=== PATIENT | male | born 1935 | race Caucasian/White ===

== ENCOUNTER 2016-12-13 13:48 | Emergency (ER) | payer OTHER, MEDICARE ==
[~2016-12-13] VITALS: Ht 182.9 cm; Wt 99.8 kg
[~2016-12-13 13:48] MED LIST: ALBUTEROL SULFAT3 M1 NEB; AUGMENTIN 875875 MG PO; AVODART0.5 MG PO; CRESTOR20 MG PO; CRESTOR40 MG PO; ECOTRIN81 MG PO; FUROSEMIDE20 MG PO; LASIX40 MG PO; LOSARTAN POTASS25 MG PO; PREDNISONE10 MG PO; SPIRIVA 18 MCG18 MCG INH; SYMBICORT 160/41 PUF INH; TOPROL XL 25MG25 MG PO; VENTOLIN1 PUF INH; VITAB121000 PO; VITAMIN C500 M3 PO; XARELTO20 MG PO
--- NOTE | 2016-12-13 16:01 | ED ANKLE/FOOT INJURY COMPLAINT ---
History of Present Illness General Chief Complaint: Lower Extremity Problems Stated Complaint: LFT FOOT AND ANKLE SWELLING NO KNOWN INJURY Source: patient, family, old records Exam Limitations: no limitations Vital Signs & Intake/Output Vital Signs & Intake/Output Vital Signs Date Time Temp Pulse Resp B/P Pulse O2 O2 Flow FiO2 Ox Delivery Rate 12/13 1750 98.8 83 16 143/76 98 Room Air ED Intake and Output 12/14 0000 12/13 1200 Intake Total 0 Output Total Balance 0 Intake, Oral 0 Patient 220 lb Weight Allergies Coded Allergies: NO KNOWN ALLERGIES (02/08/15) Reconcile Medications Albuterol Sulfate 3 ML NEB 3 ML NEB Q4 PRN SHORTNESS OF BREATH (Reported) Albuterol Sulfate (Ventolin) 1 UNIT PUF 2 PUFF INH Q4 PRN SHORTNESS OF BREATH (Reported) Amoxicillin/Potassium Clav (Augmentin 875-125 Tablet) 875 MG-125 MG TABLET 1 TAB PO BID cellulitis Ascorbic Acid (Vitamin C) 500 MG TAB 1 TAB PO DAILY SUPPLEMENT (Reported) Aspirin (Ecotrin) 81 MG ECT 1 TAB PO DAILY HEART (Reported) Budesonide/Formoterol Fumara (Symbicort 160-4.5 Mcg Inhaler) 160 MCG/4.5 MCG PUF 2 PUF INH BID COPD (Reported) Colchicine 0.6 MG TABLET 1 TAB PO BID PRN gout Cyanocobalamin (Vitamin B-12) 1,000 MCG TABLET 1 TAB PO DAILY SUPPLEMENT ( Reported) Dutasteride (Avodart) 0.5 MG CAPSULE 1 CAP PO DAILY PROSTATE (Reported) Furosemide (Lasix) 40 MG TAB 1 TAB PO DAILY CHF Losartan Potassium 25 MG TABLET 1 TAB PO DAILY HEART (Reported) Metoprolol Succ XL (Toprol XL 25MG) 50 MG TAB.ER.24H 1 TAB PO DAILY HEART ( Reported) Oxycodone HCl/Acetaminophen (Percocet 5-325 MG Tablet) 5 MG-325 MG TABLET 1 TAB PO Q6H PRN PAIN Rivaroxaban (Xarelto) 20 MG TABLET 1 TAB PO DAILY BLOOD THINNER (Reported) with food Rosuvastatin Calcium (Crestor) 40 MG TAB 1 TAB PO DAILY CHOLESTEROL (Reported ) Tiotropium [place] (Spiriva) 18 MCG CAP.W.DEV 1 CAP INH DAILY COPD (Reported) Triage Note: PT TO ED FOR L BIG TOE PAIN, SWELLING AND REDNESS X 1 DAY. PT STATING HX OF GOUT. Triage Nurses Notes Reviewed? yes HPI: Patient is an 81-year-old male presents complaining of left foot pain and redness extending into the left pretibial area. Symptoms onset yesterday. Pain is moderate at rest, severe with palpation and ambulation. Patient has a history of gout, reports it has been several years since he has had any acute gouty arthritis. Patient has been taking Tylenol with no improvement. Patient denies fevers, recent trauma. (SEAN CANO) Past History Travel History Traveled to [place] past 21 day No Medical History Any Pertinent Medical History? see below for history Neurological: NONE EENT: NONE Cardiovascular: AFIB, aortic stenosis, CAD, diastolic CHF Respiratory: COPD Gastrointestinal: NONE Hepatic: NONE Renal: NONE Musculoskeletal: NONE Psychiatric: NONE Endocrine: GOUT Blood Disorders: NONE Cancer(s): NONE PRODUCTION SUPPLY EQUIPMENT TENDER/Reproductive: NONE Other Medical Hx: BPH History of MRSA: No History of VRE: No History of CDIFF: No Tetanus Vaccine: 09/19/14 Surgical History Surgical History: non-contributory Psychosocial History Who do you live with Spouse Services at Home None What is your primary language German Tobacco Use: Never used ETOH Use: occasional use Illicit Drug Use: denies illicit drug use Family History Family History, If Any: BROTHER Bicuspid aortic valve FATHER Bicuspid aortic valve FH: lung cancer Hx Contributory? No (SEAN CANO) Review of Systems Review of Systems Constitutional: Denies: chills, fever. EENTM: Reports: no symptoms. Respiratory: Denies: cough, short of breath. Cardiovascular: Denies: chest pain. GI: Denies: abdominal pain, vomiting. Genitourinary: Reports: no symptoms. Musculoskeletal: Reports: see HPI. Skin: Reports: see HPI. Neurological/Psychological: Denies: numbness, paresthesia. Hematologic/Endocrine: Denies: bruising, bleeding. Immunologic/Allergic: Denies: splenectomy. (SEAN CANO) Physical Exam Physical Exam General Appearance: well developed/nourished, alert, awake Head: atraumatic, normal appearance Eyes: Bilateral: normal appearance, PERRL, EOMI. Ears, Nose, Throat: normal pharynx, normal ENT inspection, hearing grossly normal Neck: normal inspection, supple, full range of motion Cardiovascular/Respiratory: normal peripheral pulses, no respiratory distress Back: normal inspection, normal range of motion Leg/Knee/Thigh Left: normal range of motion Leg/Knee/Thigh Right: normal range of motion Ankle Left: normal range of motion (nontender) Foot Left: ERYTHEMA AND SWELLING LEFT FIRST mtp JOINT WITH RED STREAKING TO THE DISTAL PRETIBIAL AREA. pOSITIVE TENDERNESS. fULL RANGE OF MOTION AT ANKLE. pATIENT UNABLE TO FLEX HIS LEFT GREAT TOE. Neuro/Vascular: normal motor function, normal sensation Tendon: normal tendon function (SEAN CANO) Progress Differential Diagnosis: cellulitis, septic arthritis, gout Plan of Care: Laboratory Tests 12/13/16 1640: Anion Gap 10, Estimated GFR 53 L, BUN/Creatinine Ratio 36.2 H, Glucose 102 H, Uric Acid 8.1, Calcium 9.3 Results and labs discussed with patient and his . Patient discussed with and seen by Dr. Rios: gout vs cellulitis, discharge on antibiotics and colchicine. Patient has appointment with his primary doctor on Wednesday. Appears stable for discharge with close outpatient follow up. (SEAN CANO) Departure Departure Time of Disposition: 1740 Disposition: HOME OR SELF CARE Condition: Stable Clinical Impression Primary Impression: Acute gouty arthritis Secondary Impressions: Cellulitis of foot Referrals: TABBY KUNZ MD (PCP/Family) Additional Instructions: Elevate your foot. Follow up with Dr. Kunz on Wednesday as scheduled. Return to the ER if fevers, redness spreading or worsening of symptoms. Departure Forms: Customer Survey General Discharge Information Prescriptions: Current Visit Scripts Amoxicillin/Potassium Clav (Augmentin 875-125 Tablet) 1 TAB PO BID #14 TAB Colchicine 1 TAB PO BID PRN gout #10 TAB Oxycodone HCl/Acetaminophen (Percocet 5-325 MG Tablet) 1 TAB PO Q6H PRN PAIN #10 TAB (SEAN CANO) PA/ELEVATED WORK PLATFORM OPERATOR Co-Sign Statement Statement: ED Attending supervision documentation- [] I saw and evaluated the patient. I have also reviewed all the pertinent lab results and diagnostic results. I agree with the findings and the plan of care as documented in the PA's/ELEVATED WORK PLATFORM OPERATOR's documentation. [X] I have reviewed the ED Record and agree with the PA's/ELEVATED WORK PLATFORM OPERATOR's documentation. [] Additions or exceptions (if any) to the PAs/ELEVATED WORK PLATFORM OPERATOR's note and plan are summarized below: [] (LOUIS MENON,HAI Li)
[2016-12-13 16:42] LABS: ABSOLUTE BASOPHIL COUNT 0 /CUMM (0.0-0.2); ABSOLUTE EOSINOPHIL COUNT 0.1 /CUMM (0.0-0.7); ABSOLUTE GRANULOCYTE CT 7.6 /CUMM (1.4-6.5); ABSOLUTE LYMPH COUNT 0.7 /CUMM (1.2-3.4); ABSOLUTE MONOCYTE COUNT 1.2 /CUMM (0.10-0.60); BASOPHIL % 0.1 % (0.0-2.0); EOSINOPHIL % 1.5 % (0-5); GRANULOCYTE % 78.7 % (42.2-75.2); HEMATOCRIT 42.7 % (42-52); MEAN CORPUSCULAR VOLUME 100.1 FL (80.0-94.0); MEAN PLATELET VOLUME 7.4 FL (7.4-10.4); PLATELET COUNT 194 /CUMM (130-400); RBC DISTRIBUTION WIDTH 13.7 % (11.5-14.5); RED BLOOD CELL CT 4.27 /CUMM (4.70-6.10); WHITE BLOOD CELL COUNT 9.6 /CUMM (4.8-10.8)
[2016-12-13 17:10] LABS: PT 24.3 SEC (9.4-12.5)
[2016-12-13] MEDS ORDERED: COLCHICINE0.6 M2 PO (17:42)
[2016-12-13] MEDS ORDERED: PERCOCET 5-3251 EACH PO (17:42)
[2016-12-13] MEDS ORDERED: AUGMENTIN 875-1 EACH PO (17:42)
[2016-12-13 17:50] VITALS: BP 143/76
== END 2016-12-13 17:51 ==
LOC: ERH 13:48
PROVIDERS: Physician Assistant
DX: M10.9 Gout, unspecified (principal); L03.116 Cellulitis of left lower limb
CPT/HCPCS: 96365; 96375

== ENCOUNTER 2017-09-27 01:22 | Inpatient (IN) | payer OTHER, MEDICARE ==
[~2017-09-27] VITALS: Ht 180.3 cm; Wt 100.7 kg
[~2017-09-27 01:22] MED LIST changes: +ALLOPURINOL100 M1 PO; +ATORVASTATIN CA40 M1 PO; +AUGMENTIN 875-1 EACH PO; +AVODART0.5 M1; -AVODART0.5 MG PO; +COLCHICINE0.6 M2 PO; +FINASTERIDE5 M1 PO; +PERCOCET 5-3251 EACH PO; +ULTRAM50 M1
[2017-09-27 06:29] LABS: PT 14.4 SEC (9.4-12.5)
[2017-09-27] MEDS ORDERED: COUMADIN2 M1 PO (06:48)
--- NOTE | 2017-09-27 11:13 | Admission Core Measures ---
Acute Coronary Syndrome (CM) ACS Core Measures Acute Coronary Syndrome Diagnosis No Congestive Heart Failure (NEW) CHF Core Measures Congestive Heart Failure Diagnosis No Cerebrovascular Accident (NEW) CVA Core Measures CVA/TIA Diagnosis No Venous Thromboembolism VTE Core Toribio (View Protocol) VTE Risk Factors Surgery No Mechanical VTE Prophylaxis d/t N/A MechProphylax Ordered No VTE Pharm Prophylaxis d/t NA PharmProphylax ordered Problem List As ranked by this Provider includes Assessment & Plan 1. Loose total knee arthroplasty HOME MEDS Home Med List Albuterol Sulfate (Ventolin) 1 UNIT PUF 2 PUFF INH Q4 PRN SHORTNESS OF BREATH (Reported) Allopurinol 100 MG TABLET 1 TAB PO DAILY GOUT (Reported) Atorvastatin Calcium 40 MG TABLET 1 TAB PO DAILY CHOLESTEROL (Reported) Dutasteride (Avodart) 0.5 MG CAPSULE 1 CAP PO DAILY PROSTATE (Reported) Finasteride 5 MG TABLET 1 TAB PO DAILY bph (Reported) Furosemide (Lasix) 40 MG TAB 1 TAB PO DAILY CHF Metoprolol Succ XL (Toprol XL 25MG) 50 MG TAB.ER.24H 1 TAB PO DAILY HEART ( Reported) Warfarin Sodium (Coumadin) 2 MG TABLET 1 TAB PO DAILY blood thinner (Reported )
[2017-09-27] MEDS ORDERED: PERCOCET 5-3251 EACH PO (11:14)
--- NOTE | 2017-09-27 11:17 | Patient Discharge Instructions ---
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 No ointments or lotions of any type on or near incision at any time. No exceptions. Your dressing will be changed by your nurse on the second day after your surgery. Daily dry dressing changes are recommended each day thereafter. Do not soak your wound in a bath at any time until otherwise indicated by your surgeon. You may shower, please dry wound immediately after shower with a clean towel. Special Instructions: Constipation: Pain medication can cause constipation. Dr. Núñez has recommended that you take a stool softener and a laxative such as Colace and miralax each day. You may discontinue this medication if you develop loose stool or diarrhea. If you wish to continue this medication, it is available over the counter. If you are unable to move your bowels after several days, if you are unable to pass gas and are developing bloating, nausea, or vomiting as a result, please contact your doctor. Diet Continue normal diet: Yes Recommended Diet: Heart Healthy Acute Coronary Syndrome Inclusion Criteria At DC or during hospital stay patient has or had the following: ACS DIAGNOSIS No Discharge Core Measures Meds if any: Prescribed or Continued at Discharge Meds if any: NOT Prescribed or Continued at Discharge Congestive Heart Failure Inclusion Criteria At DC or during hospital stay patient has or had the following: CHF DIAGNOSIS No Discharge Core Measures Meds if any: Prescribed or Continued at Discharge Meds if any: NOT Prescribed or Continued at Discharge Cerebrovascular accident Inclusion Criteria At DC or during hospital stay patient has or had the following: CVA/TIA Diagnosis No Discharge Core Measures Meds if any: Prescribed or Continued at Discharge Meds if any: NOT Prescribed or Continued at Discharge Venous thromboembolism Inclusion Criteria VTE Diagnosis No VTE Type NONE VTE Confirmed by (Test) NONE Discharge Core Measures - Per Current guidelines, there needs to be overlap - treatment for the first 5 days of Warfarin therapy. - If discharged on Warfarin prior to 5 days of - overlap therapy, the patient will need to be - assessed for post discharge needs including - *Post discharge parental anticoagulation - *Warfarin and/or parental anticoagulation education - *Follow up date to check INR post discharge At least 5 days overlap therapy as Inpatient No Meds if any: Prescribed or Continued at Discharge Note: Overlap Therapy is Warfarin and Anticoagulant Meds if any: NOT Prescribed or Continued at Discharge
--- NOTE | 2017-09-27 11:20 | Surgical Discharge Summary ---
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 Medical History Neurological: NONE EENT: NONE Cardiovascular: AFIB, aortic stenosis, CAD, diastolic CHF Respiratory: COPD Gastrointestinal: NONE Hepatic: NONE Renal: NONE Musculoskeletal: NONE Psychiatric: NONE Endocrine: GOUT Blood Disorders: NONE Cancer(s): NONE MULE SPINNER/Reproductive: NONE Other Medical Hx: BPH History of MRSA: No History of VRE: No History of CDIFF: No Tetanus Vaccine: 09/19/14 Surgical History Pertinent Surgical History: non-contributory Family History Relations & Conditions If Any: BROTHER Bicuspid aortic valve FATHER Bicuspid aortic valve FH: lung cancer Psychosocial History Who Do You Live With? Spouse Services at Home: None What is Your Primary Language? [place] Review of Systems: See H&P Hospital Course Course Attending Physician: Wilton MENON,[facility] Primary Care Physician: Gregorio MENON,[facility] Course: Patient was admitted to the hospital for a revision of a left total total replacement because of aseptic loosening. The procedure was tolerated well and patient was transferred to a telemetry floor for closer telemetric monitoring due to his history of atrial fibrillation. His diet was advanced and tolerated. IV fluids were continued through his post-operative period for mild acute kidney injury, that resolved to his baseline chronic kidney disease lab values. Although he required intermittent straight catheterizations a few times in the first 24 hours, he has been voiding spontaneously in the last 24 hours. The patient was evaluated and treated by physical therapy, who is recommending further treatment at short term rehab. At the time of hospital discharge, his vital signs were stable, neurovascular status was intact, and pain was controlled with the use of oral pain medications. 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 Discharge Disposition: SNF Discharge Instructions General Discharge Information Code Status: Full Code Patient's Diet: Heart healthy, advance as tolerated Patient's Activity: WBAT Follow-Up Instructions/Appts: 6 week follow up with staple removal around post-op day#14 Medications at Discharge Discharge Medications: Stop taking the following medications: Tramadol HCl (Ultram) 50 MG TABLET Continue taking these medications: Dutasteride (Avodart) 0.5 MG CAPSULE 1 Capsule ORAL DAILY Comments: Last Taken: 02/09/15 Time: 9:30 AM Metoprolol Succ XL (Toprol XL 25MG) 50 MG TAB.ER.24H 1 Tablet ORAL DAILY Comments: Last Taken: 02/09/15 Time: 9:30 AM Albuterol Sulfate (Ventolin) 1 UNIT PUF 2 PUFF Inhale through mouth Every 4 hours as needed for SHORTNESS OF BREATH Days = 30 Comments: Last Taken: NOT GIVEN IN HOSPITAL Time: Furosemide (Lasix) 40 MG TAB 1 Tablet ORAL DAILY Qty = 90 Comments: Last Taken: 02/09/15 Time: 9:30 AM Allopurinol (Allopurinol) 100 MG TABLET 1 Tablet ORAL DAILY Atorvastatin Calcium (Atorvastatin Calcium) 40 MG TABLET 1 Tablet ORAL DAILY Finasteride (Finasteride) 5 MG TABLET 1 Tablet ORAL DAILY Warfarin Sodium (Coumadin) 2 MG TABLET 1 Tablet ORAL DAILY Instructions: patient alternates dose 2-4mg Start taking the following new medications: Oxycodone HCl/Acetaminophen (Percocet 5-325 MG Tablet) 5 MG-325 MG TABLET 1-2 Tablet ORAL EVERY 4-6 HOURS as needed for PAIN Qty = 36 No Refills Copies To: Gregorio MENON,Kacy
[2017-09-27 13:00] VITALS: BP 106/60
--- NOTE | 2017-09-27 13:20 | PN- Orthopedic ---
Subjective Subjective: POSTOP CHECK feeling well, no cp/sob/n/v. hungry and thirsty. no oob yet. pain well controlled. was in rapid afib in pacu, received BB- no asymptomatic, rate in 90s Objective Vital Signs and I&Os hr 92 bp 106/60 98% on 2L nc Physical Exam: gen- NAD card- s1s2 irreg irreg pulm- ctab abd- soft nt obese ext- LLE: in karine- cdi, onQ inplace, foot cool to touch but palp DP pulse, gross sensate/motor intact. calves soft nt bl Assessment/Plan Assessment/Plan A- POD0 sp revision L TKR, stable, on tele due to pmhx afib, rapid afib in pacu tx w BB, currently stable with HR in 90s P- home meds prn pain meds pt, wbat coum per inr telemetry onq pump dsg change pod2 dc planning Core Measures Venous Thromboembolism VTE Risk Factors Surgery No Mechanical VTE Prophylaxis d/t N/A MechProphylax Ordered No VTE Pharm Prophylaxis d/t NA PharmProphylax ordered
--- NOTE | 2017-09-27 14:49 | Operative Report ---
Operative/Inv Procedure Report Surgery Date: 09/27/17 Name of Procedure: #1 revision arthroplasty left femoral component #2 complete synovectomy due to foreign body reaction Pre-Operative Diagnosis: Aseptic loosening left femoral component Synovitis Post-Operative Diagnosis: Same final pathology pending Estimated Blood Loss: less than 50ml Surgeon/Embroidery Operator: Wilton MENON,Gideon Blackmon Anesthesia: general endotracheal tube Implants: Biomet Vanguard revision femoral component size 75 80/120 femoral stem, 10 mm posterior stabilized- Drains: None Specimens: Femoral component, synovial membrane, synovial fluid Microbiology: Synovial fluid Tourniquet: 1:30 Complications: None Condition: Stable Operative Indication: Patient is an 82-year-old man who had a left total knee arthroplasty in 2004. He had developed increasing pain and recurrent swelling of the left knee. Workup revealed what appeared to be a loose femoral component. Patient had a complete workup including to rule out infection. His bone scan revealed a femoral component which appeared to be loose. Tibial component appeared to be intact. Preop labs including sedimentation rate was slightly high and therefore aspiration was done of the synovial fluid of the left knee preoperatively. This study revealed no growth. Due to ongoing symptoms that interfere with normal activities of daily living, patient wished to proceed with revision of the femoral component. He understood there may be a possibility of revision of the complete total knee arthroplasty as well as the possibility of explantation if there was any findings consistent with infection intraoperatively. He wished to proceed with surgical management. Risks, benefits and expectations were discussed which included but were not limited to persistent knee pain, need for substance surgery, infection, DVT, injury to blood vessel or nerve, anesthesia risks Operative/Procedure Note Note: Patient was brought to the operating room and transferred to the operating table. Once under appropriate anesthesia the left lower extremity was prepped and draped in standard fashion. Preoperative IV antibiotic's were given prophylactically. The leg was elevated exsanguinated and tourniquet was inflated. I used the same incision as was used previously. I did not have to use the entire incision however. The incision was taken down sharply to the underlying retinaculum. This interval was developed between the subcutaneous tissue and the retinaculum. I then made a medial parapatellar incision after aspirating approximately 20 mL of slightly cloudy synovial fluid. This was sent to the lab for a stat Gram stain. I proceeded to complete the medial parapatellar approach and it was evident the patient had diffuse synovitis. There was a foreign body reaction throughout the knee. Allen complete synovectomy would need to be performed. The synovium was discolored slightly darkened and very hypertrophic. I did a complete synovectomy in the suprapatellar pouch medially lateral gutters. Femoral component was obviously loose. This was removed to facilitate exposure after the polyethylene was also removed. The tibial component appeared to be intact. I was able to perform a synovectomy in the posterior compartment as well after the polyethylene was removed. I debrided the femoral bone surfaces there was some bone loss posteriorly and distally. The use a curet and Damico to complete the removal of the membrane below the prosthesis. I then proceeded to sized the femur. It was sized to a size 75 using [employer] system. The distal femoral cut was freshened up. It was apparent the patient would need an augment on the lateral distal femur. This measured to about 5. My after my cuts were made I was able to proceed with the guide for the chamfer cuts. This was pinned in place and then the cuts were made. This was performed after doing the reaming of the femoral canal and it was sized to a size 21. Due to the extensive nature of the patient's distal femur and the amount of bone loss I thought that 80 mm stem would be better than a shorter stem. This was a total of 120 mm from the distal aspect of the femoral component.
[2017-09-27 15:04] VITALS: BP 98/66
[2017-09-27 18:53] VITALS: BP 108/64
[2017-09-27 23:37] VITALS: BP 102/62
[2017-09-28 03:54] VITALS: BP 118/60
[2017-09-28 07:53] LABS: ABSOLUTE BASOPHIL COUNT 0 /CUMM (0.0-0.2); ABSOLUTE EOSINOPHIL COUNT 0 /CUMM (0.0-0.7); ABSOLUTE GRANULOCYTE CT 13.3 /CUMM (1.4-6.5); ABSOLUTE LYMPH COUNT 0.6 /CUMM (1.2-3.4); ABSOLUTE MONOCYTE COUNT 1.7 /CUMM (0.10-0.60); BASOPHIL % 0.3 % (0.0-2.0); EOSINOPHIL % 0 % (0-5); MEAN CORPUSCULAR HGB 33.4 PG (27.0-31.0); MEAN CORPUSCULAR HGB CONC 33.8 G/DL (33.0-37.0); MEAN CORPUSCULAR VOLUME 98.7 FL (80.0-94.0); MEAN PLATELET VOLUME 7.3 FL (7.4-10.4); PLATELET COUNT 229 /CUMM (130-400); RBC DISTRIBUTION WIDTH 13.3 % (11.5-14.5); RED BLOOD CELL CT 3.45 /CUMM (4.70-6.10); WHITE BLOOD CELL COUNT 15.6 /CUMM (4.8-10.8)
[2017-09-28 08:00] VITALS: BP 124/68
[2017-09-28 08:17] LABS: PT 14.2 SEC (9.4-12.5)
--- NOTE | 2017-09-28 08:17 | PN- Orthopedic ---
See Addendum Subjective Subjective: Pain controlled. no acute events overnight. no complaints. Objective Vital Signs and I&Os Vital Signs Date Time Temp Pulse Resp B/P B/P Pulse O2 O2 Flow FiO2 Mean Ox Delivery Rate 09/28 0354 97.9 85 20 118/60 97 Nasal 2.0L Cannula 09/28 0000 Nasal 2.0L Cannula 09/27 2337 98.2 70 20 102/62 97 Nasal 2.0L Cannula 09/27 1853 97.7 77 20 108/64 97 Nasal 2.0L Cannula 09/27 1600 Nasal 2.0L Cannula 09/27 1504 97.6 66 20 98/66 97 Nasal 2.0L Cannula 09/27 1330 98 Nasal 2.0L Cannula 09/27 1300 98.0 92 18 106/60 98 Nasal 2.0L Cannula Intake & Output 09/28 1600 09/28 0800 09/28 0000 09/27 1600 09/27 0800 09/27 0000 Intake Total 700 800 315 Output Total 300 300 Balance 400 500 315 Intake, IV 600 600 75 Intake, Oral 100 200 240 Output, Urine 300 300 Patient 222 lb Weight Weight Reported by Patient Measurement Method Physical Exam: wdwn, aox3, nad no resp distress LLE- dressing cdi, on q in place. ROM 5-80 degrees. nvi distally. Results Last 48 Hours of Labs: Laboratory Tests 09/28 09/27 0617 0614 Chemistry Sodium Pending Potassium Pending Chloride Pending Carbon Dioxide Pending Anion Gap Pending BUN Pending Creatinine Pending BUN/Creatinine Ratio Pending Coagulation PT (9.4 - 12.5 SEC) Pending 14.4 H INR (0.90 - 1.17) Pending 1.38 H Hematology CBC w Diff Pending WBC Pending RBC Pending Hgb Pending Hct Pending MCV Pending MCH Pending RDW Pending Plt Count Pending MPV Pending PUBS MCHC Pending Assessment/Plan Assessment/Plan A- POD1 sp revision L TKR, stable, on tele due to pmhx afib P- home meds prn pain meds follow am labs pt, wbat coum per inr telemetry for hx of afib onq pump dsg change pod2 dc on Q pod2 snf discharge 1-2 days Core Measures Venous Thromboembolism VTE Risk Factors Surgery No Mechanical VTE Prophylaxis d/t N/A MechProphylax Ordered No VTE Pharm Prophylaxis d/t NA PharmProphylax ordered
[2017-09-28 08:56] LABS: GRANULOCYTE % 85.1 % (42.2-75.2)
[2017-09-28 14:42] VITALS: BP 94/52
[2017-09-28 22:13] VITALS: BP 110/60
[2017-09-29 06:53] VITALS: BP 100/62
--- NOTE | 2017-09-29 07:43 | PN- Orthopedic ---
See Addendum Subjective Subjective: Reports pain improves with morphine. Tolerating diet. No nausea. IV fluids continued and celebrex held due to acute kidney injury. Although he voided 500, he was straight cath'ed for 250 mls. Out of bed with PT and rolling walker. No dizziness. No shortness of breath. No chest pains. +BM yesterday. He anticipates discharge to rehab tomorrow. Objective Vital Signs and I&Os Vital Signs Date Time Temp Pulse Resp B/P B/P Pulse O2 O2 Flow FiO2 Mean Ox Delivery Rate 09/29 0653 98.8 87 18 100/62 97 Room Air 09/28 2213 99.4 85 18 110/60 97 09/28 1629 Room Air 2.0L 09/28 1442 97.8 90 20 94/52 96 Room Air 09/28 0805 124/68 09/28 0800 90 20 124/68 97 Room Air Intake & Output 09/29 0800 09/29 0000 09/28 1600 09/28 0800 09/28 0000 09/27 1600 Intake Total 8984 488 7371 700 800 315 Output Total 750 200 300 300 Balance 330 540 880 400 500 315 Intake, IV 800 300 600 600 600 75 Intake, Oral 280 240 480 100 200 240 Number 1 Bowel Movements Output, Urine 750 200 300 300 Patient 222 lb Weight Weight Reported by Patient Measurement Method Physical Exam: General - alert & oriented x 3. comfortable. no acute distress. Lungs - clear bilaterally Cardiac - s1s2 Abdomen - soft. nontender. Extremities - warm bilaterally. right leg dressing removed. incision well approximated with artemio. no erythema or exudates. on q removed. calves soft and nontender b/l. nvi. athrombics active. Current Medications: Current Medications Sig/Mihir Start time Last Medication Dose Route Stop Time Status Admin Albuterol Sulfate 2 PUF Q4 HRS NEEDED PRN 09/27 1330 AC INH Allopurinol 100 MG DAILY 09/28 1000 AC 09/28 PO 0805 Atorvastatin Calcium 40 MG 1700 09/28 1700 AC 09/28 PO 1625 Celecoxib 400 MG DAILY 09/28 1000 DC 09/28 PO 0806 Dextrose/Lactated 1,000 ML Q10H 09/29 0800 UNVr Ringer's IV Dextrose/Lactated 1,000 ML Q10H 09/28 1430 DC 09/29 Ringer's IV 0130 Dextrose/Lactated 1,000 ML Q13H 09/27 1330 DC 09/28 Ringer's IV 0154 Docusate Sodium 100 MG BID 09/29 1000 UNVr PO Docusate Sodium 100 MG DAILY NEEDED PRN 09/27 1330 DC 09/28 PO 0806 Finasteride 5 MG DAILY 09/28 1000 AC 09/28 PO 0805 Furosemide 40 MG DAILY 09/28 1000 DC 09/28 PO 0805 Metoprolol Succinate 50 MG DAILY 09/28 1000 AC 09/28 PO 08 Morphine Sulfate 2 MG Q3P PRN 09/27 1330 AC IV Morphine Sulfate 4 MG Q3P PRN 09/27 1330 AC 09/29 IV 0429 Ondansetron HCl 4 MG Q6P PRN 09/27 1330 AC IV Oxycodone/ 1 TAB Q4P PRN 09/27 1330 AC Acetaminophen PO Oxycodone/ 2 TAB Q4P PRN 09/27 1330 AC Acetaminophen PO Polyethylene Glycol 17 GM DAILY NEEDED PRN 09/27 1330 AC PO Senna/Docusate Sodium 2 TAB AT BEDTIME NEED.. 09/27 1330 AC PO Warfarin Sodium 5 MG COUMADIN 1700 ONE 09/28 1800 DC 09/28 PO 09/28 1801 1945 Results Last 48 Hours of Labs: Laboratory Tests 09/29 09/28 0715 0617 Chemistry Sodium (137 - 145 mmol/L) Pending 140 Potassium (3.5 - 5.1 mmol/L) Pending 4.7 Chloride (98 - 107 mmol/L) Pending 102 Carbon Dioxide (22 - 30 mmol/L) Pending 25 Anion Gap (5 - 16) Pending 13 BUN (9 - 20 mg/dL) Pending 55 H Creatinine (0.7 - 1.2 mg/dL) Pending 2.3 H Estimated GFR (>60 ml/min) 27 L BUN/Creatinine Ratio (7 - 25 %) Pending 23.9 Coagulation PT (9.4 - 12.5 SEC) Pending 14.2 H INR (0.90 - 1.17) Pending 1.36 H Hematology CBC w Diff Pending NO MAN DIFF REQ WBC (4.8 - 10.8 /CUMM) Pending 15.6 H RBC (4.70 - 6.10 /CUMM) Pending 3.45 L Hgb (14.0 - 18.0 G/DL) Pending 11.5 L Hct (42 - 52 %) Pending 34.0 L MCV (80.0 - 94.0 FL) Pending 98.7 H MCH (27.0 - 31.0 PG) Pending 33.4 H RDW (11.5 - 14.5 %) Pending 13.3 Plt Count (130 - 400 /CUMM) Pending 229 MPV (7.4 - 10.4 FL) Pending 7.3 L Gran % (42.2 - 75.2 %) 85.1 H Lymphocytes % (20.5 - 51.1 %) 3.9 L Monocytes % (1.7 - 9.3 %) 10.7 H Eosinophils % (0 - 5 %) 0 Basophils % (0.0 - 2.0 %) 0.3 Absolute Granulocytes (1.4 - 6.5 /CUMM) 13.3 H Absolute Lymphocytes (1.2 - 3.4 /CUMM) 0.6 L Absolute Monocytes (0.10 - 0.60 /CUMM) 1.7 H Absolute Eosinophils (0.0 - 0.7 /CUMM) 0 Absolute Basophils (0.0 - 0.2 /CUMM) 0 PUBS MCHC (33.0 - 37.0 G/DL) Pending 33.8 Assessment/Plan Assessment/Plan This 82 year old male with hx chf, afib, hld, htn, gout, hx bph, is POD#2 s/p revision L 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 wbat f/u labs may consider walker catheter if still requiring straight caths. strict i/o's given pacheco telemetry for hx of afib d/c planning for tomorrow if stable will d/w Core Measures Venous Thromboembolism VTE Risk Factors Surgery No Mechanical VTE Prophylaxis d/t N/A MechProphylax Ordered No VTE Pharm Prophylaxis d/t NA PharmProphylax ordered
[2017-09-29 07:53] LABS: ABSOLUTE BASOPHIL COUNT 0 /CUMM (0.0-0.2); ABSOLUTE EOSINOPHIL COUNT 0.2 /CUMM (0.0-0.7); ABSOLUTE GRANULOCYTE CT 6.4 /CUMM (1.4-6.5); ABSOLUTE LYMPH COUNT 0.8 /CUMM (1.2-3.4); ABSOLUTE MONOCYTE COUNT 0.9 /CUMM (0.10-0.60); BASOPHIL % 0.1 % (0.0-2.0); EOSINOPHIL % 2.1 % (0-5); GRANULOCYTE % 77.6 % (42.2-75.2); MEAN CORPUSCULAR HGB 32.8 PG (27.0-31.0); MEAN CORPUSCULAR HGB CONC 33.6 G/DL (33.0-37.0); MEAN CORPUSCULAR VOLUME 97.5 FL (80.0-94.0); MEAN PLATELET VOLUME 6.9 FL (7.4-10.4); PLATELET COUNT 188 /CUMM (130-400); RED BLOOD CELL CT 3.08 /CUMM (4.70-6.10); WHITE BLOOD CELL COUNT 8.3 /CUMM (4.8-10.8)
--- NOTE | 2017-09-29 11:42 | RADIOLOGY REPORT ---
EXAMINATION: CR KNEE, LEFT CLINICAL INFORMATION: Status post left total knee arthroplasty. COMPARISON: None TECHNIQUE: Two views of the left knee. FINDINGS: The patient is status post total left knee arthroplasty with the prosthetic components well seated within the blackfeet bone and normally aligned. Postsurgical changes are seen in the overlying soft tissues with soft tissue emphysema, soft tissue swelling, small knee joint effusion and midline cutaneous artemio seen. No hardware failure or blackfeet bone fracture is seen. Prominent atherosclerotic vascular calcifications are seen. IMPRESSION: Expected postsurgical changes seen status post total left knee arthroplasty. No hardware failure or blackfeet bone fracture noted.
[2017-09-29 14:47] VITALS: BP 94/60
[2017-09-29 17:36] VITALS: BP 120/74
[2017-09-29 22:19] VITALS: BP 144/80
[2017-09-30 05:46] VITALS: BP 122/62
[2017-09-30 08:19] LABS: PT 21.9 SEC (9.4-12.5)
[2017-09-30] MEDS ORDERED: PERCOCET 5-3251 EACH PO (08:44)
[2017-09-30] MEDS ORDERED: SENNA PLUS TAB1 EACH PO (08:44)
[2017-09-30] MEDS ORDERED: DOCUSATE SODIU100 M3 PO (08:44)
[2017-09-30 10:12] VITALS: BP 122/62
== END 2017-09-30 15:25 | DRG 467 ==
LOC: SDA 01:22 → 1NO 01:22 → ENRESERV 11:23 → ENTRNSPT 12:19 → EDTRNSPTSTS 12:27 → EDTRNSPT 12:27 → 1NO 12:44 → CMPTRNSPT 12:47 → ENTRNSPT 09-30 15:24 → EDTRNSPTSTS 09-30 15:25 → 1NO 09-30 15:25 → EDTRNSPT 09-30 15:25 → CMPTRNSPT 09-30 15:40
PROVIDERS: Orthopaedic Surgery; Physician Assistant; Physician Assistant Surgical
PROC: 0SPU0JZ Removal of Synthetic Substitute from Left Knee Joint, Femoral Surface, Open Approach (ICD-10-PCS; principal; 2017-09-27)
PROC: 0SRU0J9 Replacement of Left Knee Joint, Femoral Surface with Synthetic Substitute, Cemented, Open Approach (ICD-10-PCS; 2017-09-27)
DX: T84.033A Mechanical loosening of internal left knee prosthetic joint, initial encounter (principal); I13.0 Hypertensive heart and chronic kidney disease with heart failure and stage 1 through stage 4 chronic kidney disease, or unspecified chronic kidney disease; J84.9 Interstitial pulmonary disease, unspecified; N17.9 Acute kidney failure, unspecified; I50.32 Chronic diastolic (congestive) heart failure; I48.91 Unspecified atrial fibrillation; N18.2 Chronic kidney disease, stage 2 (mild); I35.0 Nonrheumatic aortic (valve) stenosis; M10.9 Gout, unspecified; E78.5 Hyperlipidemia, unspecified; N40.0 Benign prostatic hyperplasia without lower urinary tract symptoms
CPT/HCPCS: 1NSP; 87070; 87075; 36415; 73560-LT; 81001; 82436; 87086; 97110-GO; 97112-GO; 97116-GO; 97161-GP; 97530-GO; C1713; C9399; J0131; J0171; J1100; J1885; J2795; J3370; J3490; J7040

== ENCOUNTER 2018-04-04 10:54 | Observation (INO) | payer OTHER, MEDICARE ==
[~2018-04-04] VITALS: Ht 180.3 cm; Wt 98.4 kg
[~2018-04-04 10:54] MED LIST changes: +COUMADIN2 M1 PO; +DOCUSATE SODIU100 M3 PO; +SENNA PLUS TAB1 EACH PO; -TOPROL XL 25MG25 MG PO; +TOPROL XL25 M1 PO
[2018-04-04 11:56] LABS: ABSOLUTE BASOPHIL COUNT 0 /CUMM (0.0-0.2); ABSOLUTE EOSINOPHIL COUNT 0.1 /CUMM (0.0-0.7); ABSOLUTE GRANULOCYTE CT 4.3 /CUMM (1.4-6.5); ABSOLUTE LYMPH COUNT 0.6 /CUMM (1.2-3.4); ABSOLUTE MONOCYTE COUNT 0.5 /CUMM (0.10-0.60); BASOPHIL % 0.5 % (0.0-2.0); EOSINOPHIL % 2.4 % (0-5); GRANULOCYTE % 77.1 % (42.2-75.2); HEMATOCRIT 35.8 % (42-52); MEAN CORPUSCULAR HGB 33.3 PG (27.0-31.0); MEAN CORPUSCULAR HGB CONC 34.7 G/DL (33.0-37.0); MEAN CORPUSCULAR VOLUME 96.1 FL (80.0-94.0); MEAN PLATELET VOLUME 6.8 FL (7.4-10.4); PLATELET COUNT 199 /CUMM (130-400); RBC DISTRIBUTION WIDTH 13.9 % (11.5-14.5); RED BLOOD CELL CT 3.72 /CUMM (4.70-6.10); WHITE BLOOD CELL COUNT 5.5 /CUMM (4.8-10.8)
[2018-04-04] MEDS ORDERED: COUMADIN4 M1 PO (11:59)
[2018-04-04] MEDS ORDERED: HYDROCHLOROTHIA25 M1 PO (11:59)
[2018-04-04] MEDS ORDERED: CRESTOR40 M2 PO (11:59)
[2018-04-04] MEDS ORDERED: ASPIRIN81 M4 PO (12:00)
[2018-04-04] MEDS ORDERED: VITAMIN C500 M6 PO (12:01)
[2018-04-04] MEDS ORDERED: VITAMIN B-12250 MCG PO (12:01)
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
[2018-04-04] MEDS ORDERED: FUROSEMIDE40 M1 PO (12:03)
[2018-04-04 12:06] LABS: PT 41.1 SEC (9.4-12.5)
--- NOTE | 2018-04-04 14:16 | CT SCAN REPORT ---
EXAMINATION: CT ANGIOGRAM NECK WITH CONTRAST CT ANGIOGRAM BRAIN WITH CONTRAST CLINICAL INFORMATION: Central vertigo. COMPARISON: None available. TECHNIQUE: First, a noncontrast head CT was performed. Test bolus sequences followed by intravenous administration 95 mL of Optiray 320. Helical imaging was performed in the axial plane from the thoracic inlet to the skull vertex. Delayed postcontrast imaging of the head was also performed. The data was processed at the nanotechnology engineering technologist workstation for generation of MIP sequences. Angled MIPs and volume rendered reformatted images were also generated at an offline 3D workstation. Stenoses are assessed in accordance with NASCET criteria unless otherwise indicated. FINDINGS: BRAIN: There is global cerebral volume loss and mild chronic microangiopathy. There is no hemorrhage, hydrocephalus, extra-axial surface collection, midline shift, or other herniation pattern. Solomon to white matter differentiation is diffusely maintained without evidence of an evolved acute territorial infarct. The basilar cisterns are preserved. No significant soft tissue abnormality. No acute osseous abnormality. The paranasal sinuses and the mastoid air cells are well-aerated. CERVICAL SOFT TISSUES AND LUNG APICES: Calcified pleural plaques are again noted. Partially imaged mediastinal and hilar lymphadenopathy. Advanced cervical spondylosis. NECK CTA: There is a classic 3 vessel configuration of the aortic arch. Proximal arch vessels are non-stenotic. The vertebral arteries are codominant. Atherosclerotic calcification of the vertebral artery origins bilaterally likely resulting in mild to moderate vertebral artery origin stenosis. Cervical vertebral arteries are otherwise widely patent. Common carotid arteries are widely patent. Calcific and lipid rich atherosclerotic plaque results in 50% stenoses of the proximal right and left internal carotid arteries. BRAIN CTA: Calcific atherosclerotic disease results in mild narrowing of the left intradural vertebral artery. The right AICA and PICA are faintly visualized with a possible combined origin that is severely stenotic or near occluded. No definite cerebellar infarcts are seen. The basilar artery is widely patent. Atherosclerotic calcification results in mild luminal narrowing of the carotid siphons bilaterally. The anterior, middle, and posterior cerebral artery complexes are widely patent. 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 IMPRESSION: - No acute intracranial findings. No acute infarcts. There is global cerebral volume loss and mild chronic microangiopathy. - The right AICA and PICA are faintly visualized with a possible combined origin that is severely stenotic or near occluded. No definite cerebellar infarcts are seen. - Calcific and lipid rich atherosclerotic plaque results in 50% stenoses of the proximal right and left internal carotid arteries. - Atherosclerotic calcification of the vertebral artery origins bilaterally likely resulting in mild to moderate vertebral artery origin stenosis. 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 - Calcified pleural plaques are again noted. Partially imaged mediastinal and hilar lymphadenopathy. - Advanced cervical spondylosis. The covering provider has been paged with these findings at 2:11 PM on 04/04/2018.
--- NOTE | 2018-04-04 16:21 | MRI REPORT ---
EXAMINATION: MR BRAIN WITHOUT CONTRAST CLINICAL INFORMATION: Ongoing vertigo. Concern for posterior CVA. COMPARISON: CTA of the head and neck earlier 04/04/2018. TECHNIQUE: MRI of the brain without contrast was obtained using routine sequences. FINDINGS: No diffusion abnormalities are identified to suggest an acute or subacute infarct. No mass effect or midline shift is seen. There is mild commensurate prominence of the ventricles and sulci consistent with mild diffuse volume loss. There are moderately extensive areas of T2 and FLAIR hyperintensity in the periventricular and subcortical white matter and in the josephine consistent with sequelae of chronic microvascular ischemic disease. There is a subinsular lacunar infarct on the left. No extra-axial fluid collections are seen. The cerebellum appears normal. The CP angles are unremarkable. There have been bilateral lens extractions. No pathologic magnetic susceptibility artifact is identified on the gradient refocused acquisition. The craniovertebral junction, marrow signal, and midline structures are normal. The major intracranial flow-voids at the level of the [place] are preserved. The dural venous sinus flow-voids are maintained. The mastoid air cells and paranasal sinuses are well-aerated. IMPRESSION: 1. There are no acute bleeds or infarcts. No masses are demonstrated. 2. There is diffuse volume loss and there are chronic microvascular ischemic disease and lacunar infarcts.
--- NOTE | 2018-04-04 17:06 | Cons- Neurology ---
General Information and HPI Consulting Request Date of Consult: 04/04/18 Requested By: Dr. Sims History of Present Illness: 82-year-old male in relatively good medical health who about 3:00 in the morning getting out of bed to go to the bathroom He noted that he was both vertiginous and imbalance He went to the bathroom and almost missed the toilet when sitting He then walked back to bed again imbalanced and holding onto the burns to avoid falling After while he laid down and stated that the dizzy sensation seemed to serina He then tried again related to get up and as he was sitting again noted a vertiginous sense Is no accompanying vomiting Did not have any difficulty with speech There was no limb incoordination There is no diplopia He recalls that about 2 weeks ago he hit his head hard on a seat rest He noted mild headache which subsequently resolved There was no change in hearing Allergies/Medications Allergies: Coded Allergies: No Known Allergies (09/21/17) Home Med List: Allopurinol 100 MG TABLET 1 TAB PO DAILY GOUT (Reported) Ascorbate Calcium (Vitamin C) 500 MG TABLET 1 TAB PO DAILY VITAMIN SUPPORT ( Reported) Aspirin (Aspirin*) 81 MG TAB.CHEW 1 TAB PO DAILY HEART HEALTH (Reported) Atorvastatin Calcium 40 MG TABLET 1 TAB PO DAILY CHOLESTEROL (Reported) Cyanocobalamin (Vitamin B-12) (Vitamin B-12) 250 MCG TABLET 1 TAB PO DAILY VITAMIN SUPPORT (Reported) Finasteride 5 MG TABLET 1 TAB PO DAILY bph (Reported) Furosemide 40 MG TABLET 1 TAB PO DAILY CHF (Reported) Hydrochlorothiazide 25 MG TABLET 1 TAB PO DAILY WATER RETENTION (Reported) Metoprolol Succ XL (Toprol XL) 25 MG TAB 1 TAB PO DAILY HEART (Reported) Rosuvastatin Calcium (Crestor) 40 MG TABLET 1 TAB PO DAILY CHOLESTEROL ( Reported) Warfarin Sodium (Coumadin) 2 MG TABLET 1 TAB PO TuThSa blood thinner ( Reported) Warfarin Sodium (Coumadin) 4 MG TABLET 1 TAB PO SuMoWeFr BLOOD THINNER ( Reported) Current Medications: Current Medications Sig/Mihir Start time Last Medication Dose Route Stop Time Status Admin Lorazepam 0 .STK-MED ONE 04/04 1327 DC .ROUTE Lorazepam 0.5 MG ONE ONE 04/04 1315 DC 04/04 IV 04/04 1316 1353 Meclizine HCl 0 .STK-MED ONE 04/04 1136 DC PO Meclizine HCl 12.5 MG ONCE ONE 04/04 1130 DC 04/04 PO 04/04 1131 1140 Sodium Chloride 500 ML BOLUS ONE 04/04 1130 DC 04/04 IV 04/04 1229 1140 Review of Systems Review of Systems: Mild headache which resolved, no diplopia, no speech or swallowing difficulty, no hearing change Weight stable, no chest pains Intermittent breathing difficulties: Patient on CPAP No focal weakness or paresthesias No significant swelling No fevers Other systems reviewed are negative Past History Travel History Traveled to [place] past 21 day No Medical History Neurological: NONE EENT: NONE Cardiovascular: AFIB, aortic stenosis, CAD, diastolic CHF Respiratory: COPD Gastrointestinal: NONE Hepatic: NONE Renal: NONE Musculoskeletal: NONE Psychiatric: NONE Endocrine: GOUT Blood Disorders: NONE Cancer(s): NONE 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 Other Medical Hx: BPH Surgical History Surgical History: non-contributory Family History Relations & Conditions If Any: BROTHER Bicuspid aortic valve FATHER Bicuspid aortic valve FH: lung cancer Psychosocial History Services at Home: None Smoking Status: Former Smoker Exam & Diagnostic Data Vital Signs and I&O Vital Signs Date Time Temp Pulse Resp B/P B/P Pulse O2 O2 Flow FiO2 Mean Ox Delivery Rate 04/04 1625 98.2 72 18 121/71 97 Room Air 04/04 1347 97.9 68 20 132/79 98 Room Air 04/04 1059 97 Room Air 04/04 1058 97.8 85 20 155/81 97 Room Air Intake & Output 04/04 1600 04/04 0800 04/04 0000 Intake Total 500 Output Total Balance 500 Intake, IV 500 Patient 214 lb Weight Weight Reported by Patient Measurement Method Physical Exam: Alert and oriented Language functions fund of knowledge attention span and concentration recall intact Heart sounds normal no carotid bruits distal pulses intact Extraocular movements full, pupils equal reactive fundi benign, visual olea intact, no facial weakness or facial sensory loss, Palate, tongue, sholders intact, hearing mildly impaired, Normal tone and strength upper and lower extremities Mild sensory loss in hands bilaterally but not lower extremities Deep tendon reflexes areflexic bilaterally coordinative functions upper extremities intact Gait showed mild imbalance Hallpike Jaiden maneuver did not induce nystagmus or vertigo Last 48 Hours of Lab Results: Laboratory Tests 04/04 1146 Chemistry Sodium (137 - 145 mmol/L) 142 Potassium (3.5 - 5.1 mmol/L) 4.4 Chloride (98 - 107 mmol/L) 103 Carbon Dioxide (22 - 30 mmol/L) 27 Anion Gap (5 - 16) 12 BUN (9 - 20 mg/dL) 50 H Creatinine (0.7 - 1.2 mg/dL) 1.5 H Estimated GFR (>60 ml/min) 45 L BUN/Creatinine Ratio (7 - 25 %) 33.3 H Glucose (65 - 99 mg/dL) 104 H Calcium (8.4 - 10.2 mg/dL) 9.0 Total Bilirubin (0.2 - 1.3 mg/dL) 0.8 AST (17 - 59 U/L) 28 ALT (21 - 72 U/L) 39 Alkaline Phosphatase (< 127 U/L) 124 Troponin I (<0.11 ng/ml) 0.08 Total Protein (6.3 - 8.2 g/dL) 6.6 Albumin (3.5 - 5.0 g/dL) 3.8 Globulin (1.9 - 4.2 gm/dL) 2.8 Albumin/Globulin Ratio (1.1 - 2.2 %) 1.4 Coagulation PT (9.4 - 12.5 SEC) 41.1 H INR (0.90 - 1.17) 3.72 H Hematology CBC w Diff NO MAN DIFF REQ WBC (4.8 - 10.8 /CUMM) 5.5 RBC (4.70 - 6.10 /CUMM) 3.72 L Hgb (14.0 - 18.0 G/DL) 12.4 L Hct (42 - 52 %) 35.8 L MCV (80.0 - 94.0 FL) 96.1 H MCH (27.0 - 31.0 PG) 33.3 H MCHC (33.0 - 37.0 G/DL) 34.7 RDW (11.5 - 14.5 %) 13.9 Plt Count (130 - 400 /CUMM) 199 MPV (7.4 - 10.4 FL) 6.8 L Gran % (42.2 - 75.2 %) 77.1 H Lymphocytes % (20.5 - 51.1 %) 10.8 L Monocytes % (1.7 - 9.3 %) 9.2 Eosinophils % (0 - 5 %) 2.4 Basophils % (0.0 - 2.0 %) 0.5 Absolute Granulocytes (1.4 - 6.5 /CUMM) 4.3 Absolute Lymphocytes (1.2 - 3.4 /CUMM) 0.6 L Absolute Monocytes (0.10 - 0.60 /CUMM) 0.5 Absolute Eosinophils (0.0 - 0.7 /CUMM) 0.1 Absolute Basophils (0.0 - 0.2 /CUMM) 0 Imaging/Other Studies: MRI brain: IMPRESSION: 1. There are no acute bleeds or infarcts. No masses are demonstrated. 2. There is diffuse volume loss and there are chronic microvascular ischemic disease and lacunar infarcts. CT/CTA: IMPRESSION: - No acute intracranial findings. No acute infarcts. There is global cerebral volume loss and mild chronic microangiopathy. - The right AICA and PICA are faintly visualized with a possible combined origin that is severely stenotic or near occluded. No definite cerebellar infarcts are seen. - Calcific and lipid rich atherosclerotic plaque results in 50% stenoses of the proximal right and left internal carotid arteries. - Atherosclerotic calcification of the vertebral artery origins bilaterally likely resulting in mild to moderate vertebral artery origin stenosis. 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 - Calcified pleural plaques are again noted. Partially imaged mediastinal and hilar lymphadenopathy. Assessment/Plan Assessment: Vertigo, positional Likely benign positional vertigo but this could not be reproduced on examination No evidence for cerebellar infarct on MRI scan Recommendations: Physical therapy for gait evaluation and reassessment for possible benign positional vertigo Monitor for possible development of cerebellar signs Consult Acknowledgment - Thank you for your consult request.
--- NOTE | 2018-04-04 18:01 | History & Physical ---
Uri Minor 04/04/18 5594: General Information and HPI MD Statement: I have seen and personally examined TRISHA ABRAHAM and documented this H&P. The patient is a 82 year old M who presented with a patient stated chief complaint of dizziness. Source of Information: patient, family Exam Limitations: clinical condition (could not assess gait) History of Present Illness: Retention, hyperlipidemia 80, CAD, diastolic heart failure, A. fib on Coumadin, aortic stenosis status post aortic valve replacement who presents to the emergency department with several hours of dizziness. According to the patient, around 3 AM this morning to go to the bathroom, but felt very "out of balance ", having to hold onto the burns to keep from falling. He returned to bed afterwards, but the dizziness persisted. The patient states he did not fall during this event. He denies chest pain and shortness of breath. Denies any headache. Has had no fever/chills/travel/change in medications. Has never had these symptoms before Allergies/Medications Allergies: Coded Allergies: No Known Allergies (09/21/17) Home Med list Allopurinol 100 MG TABLET 1 TAB PO DAILY GOUT (Reported) Ascorbate Calcium (Vitamin C) 500 MG TABLET 1 TAB PO DAILY VITAMIN SUPPORT ( Reported) Aspirin (Aspirin*) 81 MG TAB.CHEW 1 TAB PO DAILY HEART HEALTH (Reported) Atorvastatin Calcium 40 MG TABLET 1 TAB PO DAILY CHOLESTEROL (Reported) Cyanocobalamin (Vitamin B-12) (Vitamin B-12) 250 MCG TABLET 1 TAB PO DAILY VITAMIN SUPPORT (Reported) Finasteride 5 MG TABLET 1 TAB PO DAILY bph (Reported) Hydrochlorothiazide 25 MG TABLET 1 TAB PO DAILY WATER RETENTION (Reported) Metoprolol Succ XL (Toprol XL) 25 MG TAB 1 TAB PO DAILY HEART (Reported) Rosuvastatin Calcium (Crestor) 40 MG TABLET 1 TAB PO DAILY CHOLESTEROL ( Reported) Warfarin Sodium (Coumadin) 2 MG TABLET 1 TAB PO TuThSa blood thinner ( Reported) Warfarin Sodium (Coumadin) 4 MG TABLET 1 TAB PO SuMoWeFr BLOOD THINNER ( Reported) Compliance With Home Meds: GOOD Past History Travel History Traveled to [place] past 21 day No Medical History Neurological: NONE EENT: NONE Cardiovascular: AFIB, aortic stenosis, CAD, diastolic CHF Respiratory: COPD Gastrointestinal: NONE Hepatic: NONE Renal: NONE Musculoskeletal: NONE Psychiatric: NONE Endocrine: GOUT Blood Disorders: NONE Cancer(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 spouse Services at Home: None Smoking Status: Former Smoker Review of Systems Review of Systems Constitutional: Reports: no symptoms. Cardiovascular: Reports: no symptoms. Respiratory: Reports: no symptoms. Musculoskeletal: Reports: no symptoms. Skin: Reports: no symptoms. Neurological/Psychological: Reports: other (vertigo). Denies: confusion, headache, tingling, tremors. Hematologic/Endocrine: Reports: no symptoms. Exam & Diagnostic Data Last 24 Hrs of Vital Signs/I&O Vital Signs Date Time Temp Pulse Resp B/P B/P Pulse O2 O2 Flow FiO2 Mean Ox Delivery Rate 04/04 2010 80 20 150/82 98 04/04 1736 81 18 154/86 99 Room Air 04/04 1625 98.2 72 18 121/71 97 Room Air 04/04 1347 97.9 68 20 132/79 98 Room Air 04/04 1059 97 Room Air 04/04 1058 97.8 85 20 155/81 97 Room Air Intake & Output 04/04 1600 04/04 0800 04/04 0000 Intake Total 500 Output Total Balance 500 Intake, IV 500 Patient 214 lb Weight Weight Reported by Patient Measurement Method Physical Exam General Appearance Alert, Oriented X3, Cooperative, No Acute Distress Skin No Rashes, No Breakdown Skin Temp/Moisture Exam: Warm/Dry HEENT Atraumatic, PERRLA, EOMI Neck Supple, No JVD, No thryomegaly Cardiovascular Regular Rate, Normal S1, Normal S2, No Murmurs Lungs Clear to Auscultation, Normal Air Movement Abdomen Soft, No Tenderness, No Hepatospenomegaly Neurological Normal Speech, Strength at 5/5 X4 Ext, Normal Tone, Sensation Intact, dizziness, increased by increasing vertical height Extremities No Clubbing, No Cyanosis, No Edema, Normal Pulses Vascular Normal Pulses, Pulses Symmetrical Last 24 Hrs of Labs/Dustin: Laboratory Tests 04/04/18 1146: Anion Gap 12, Estimated GFR 45 L, BUN/Creatinine Ratio 33.3 H, Glucose 104 H, Calcium 9.0, Total Bilirubin 0.8, AST 28, ALT 39, Alkaline Phosphatase 124, Troponin I 0.08, Total Protein 6.6, Albumin 3.8, Globulin 2.8, Albumin/Globulin Ratio 1.4, PT 41.1 H, INR 3.72 H, CBC w Diff NO MAN DIFF REQ, RBC 3.72 L, MCV 96.1 H, MCH 33.3 H, MCHC 34.7, RDW 13.9, MPV 6.8 L, Gran % 77.1 H, Lymphocytes % 10.8 L, Monocytes % 9.2, Eosinophils % 2.4, Basophils % 0.5, Absolute Granulocytes 4.3, Absolute Lymphocytes 0.6 L, Absolute Monocytes 0.5, Absolute Eosinophils 0.1, Absolute Basophils 0 Diagnostic Data Other Results SERVICE DATE: 04/04/18 EXAM TYPE: MRI - MRI-HEAD W/O MICHELLE IMPRESSION: 1. There are no acute bleeds or infarcts. No masses are demonstrated. 2. There is diffuse volume loss and there are chronic microvascular ischemic disease and lacunar infarcts. SERVICE DATE: 04/04/18 EXAM TYPE: CAT - CT HEAD ANGIOGRAM; CT NECK ANGIOGRAM IMPRESSION: - No acute intracranial findings. No acute infarcts. There is global cerebral volume loss and mild chronic microangiopathy. - The right AICA and PICA are faintly visualized with a possible combined origin that is severely stenotic or near occluded. No definite cerebellar infarcts are seen. - Calcific and lipid rich atherosclerotic plaque results in 50% stenoses of the proximal right and left internal carotid arteries. - Atherosclerotic calcification of the vertebral artery origins bilaterally likely resulting in mild to moderate vertebral artery origin stenosis. 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 - Calcified pleural plaques are again noted. Partially imaged mediastinal and hilar lymphadenopathy. - Advanced cervical spondylosis. Assessment/Plan Assessment: This is an 82-year-old male with history of hypertension, hyperlipidemia, coronary artery disease, diastolic heart failure, A. fib on Coumadin, aortic stenosis status post aortic valve replacement who was brought to the emergency department with several hours of dizziness. Problem list/plan: Intractable vertigo -Admit to [facility] -Vitals and I/O per protocol -Appreciate neurology consult - will contact them again to discuss the clinical correlate of AICA/PICA stenosis in this patient -All home medicines held at this time; will restart them pending etiology of vertigo Chronic conditions (htn, hld, cad, hf, afib, aortic stenosis/replacement) -restart home medications pending etiology of vertigo -warfarin held for supratherapeutic INR DVT prophylaxis - held due to supratherapeutic INR Patient is DNR/DNI As Ranked By This Provider Problem List: 1. Vertigo Core Measures/Misc (06/06) Acute Coronary Syndrome ACS Diagnosis: No Congestive Heart Failure Congestive Heart Failure Diagnosis No Cerebrovascular Accident CVA/TIA Diagnosis: No VTE (View Protocol) VTE Risk Factors Age>40 No Mechanical VTE Prophylaxis d/t N/A MechProphylax Ordered No VTE Pharm Prophylaxis d/t Supratherapeutic INR Sepsis (View protocol) Sepsis Present: No If YES complete Sepsis Event Note If YES complete Sepsis Event Note Meaghan Kaufman 04/04/18 2019: Core Measures/Misc (06/06) Sepsis (View protocol) If YES complete Sepsis Event Note If YES complete Sepsis Event Note Resident Review Statement Resident Statement: examined this patient, discussed with technology internship, agreed with technology internship, discussed with family, reviewed EMR data (avail) Other Findings: 82-year-old gentleman past medical history significant for hypertension, hyperlipidemia, coronary artery disease, diastolic heart failure, A. fib on Coumadin, aortic stenosis status post aortic bovine valve replacement brought by family to ED for dizziness of one day duration. Family was at bedside during the interview. Patient states that he woke up early this morning and very unsteady and unbalanced when he was trying to walk he describes the dizziness as himself spinning. Denies any falls, loss of consciousness, nausea, vomiting, decreased p.o. intake, aggravation with head movement, headaches, vision changes , or difficulty with speech, weakness of upper and lower extremities, previous similar episodes in the past, upper respiratory symptoms, ear pain ear discharge , chest pain shortness of breath or palpitations. Vitals stable in the ED, on examination patient was alert and oriented and answers questions appropriately cranial nerves II to XII grossly normal, power 5 out of 5 4, sensations intact normal tone, no pronator drift appreciated. Patient's gait not assessed. He did report some improvement with meclizine and Ativan. Labs significant for supratherapeutic INR, BUN 50, creatinine 1.5 which looks like his baseline. MRI showed no acute bleed or infarcts CTA of the neck significant for right AICA and PICA are faintly visualized with a possible combined origin that is severely stenotic or near occluded. Assessment: Differentials include cerebellar stroke versus benign proximal positional vertigo Problem list Vertigo Atrial fibrillation Aortic valve replacement Hypertension Coronary artery disease Plan Place as obs to general medicine floor, every 4 neuro checks, vitals per protocol Unclear what the clinical significance of AICA/PICA stenosis at this time as patient is neurologically stable we will continue to monitor closely and follow- up neuroradiology in the a.m. Orthostatic vitals PT /OT Neurology consulted by ED Ativan/meclizine as needed as needed We will hold Coumadin in view of supratherapeutic INR follow-up INR in the morning Continue home medications DVT prophylaxis supratherapeutic INR DNR/DNI Shay Ortega MD 04/05/18 2222: Core Measures/Misc (06/06) Sepsis (View protocol) If YES complete Sepsis Event Note If YES complete Sepsis Event Note Attending MD Review Statement Attending Statement Attending MD Statement: examined this patient, discuss w/resident/PA/SOLAR DESIGN ENGINEER, agreed w/resident/PA/SOLAR DESIGN ENGINEER, discussed with family, reviewed EMR data (avail), reviewed images, amended to note Attending Assessment/Plan: The patient is an 82 yo male with h/o CAD, afib, preserved EF CHF, s/p bioprosthetic AOVR who presented in the ED with c/o sudden onset of severe vertigo which began at 3 am on the morning of admission. He was unable to keep his balance. He denied any palpitations, chest pain, dyspnea, headache or other focal weakness. In the ED he was seen by Neurology and neuro w/u and imaging (no acute CVA or bleed). He was on telemetry in the ED and had no arrhythmias at the time he was symptomatic per ED physician. Physical Exam: VS: T 97.9, P 80, R 20, BP 150/82, PO 98% RA HEENT: eyes- PERRLA, EOMI w/o nystagmus pratima- moist mucosa Neck: no bruits or JVD Chest: clear Cor: sl irreg, nl rate, nl S1, S2 w/o murm Abd: BS+, soft, NT Ext: no edema, pulses 2+ Neuro: alert & oriented x 3, motor, sensory, DTRs, CN intact- FTN/HTS intact ( gait not tested) Labs/Tests- as above Impression/Plan: #Severe Vertigo- MRI, CTA, CT negative for acute CVA. Neuro consult suspects BPPV, however no nystagmus. Plan: Bring in to hospital as observation patient- q4h neuro checks PT consult in morning- ? vestibular exercises #Afib- rate controlled on Metoprolol. Plan: Continue Metoprolol and Coumadin. #Hyperlipidemia- on statin. Plan: Continue statin. #H/O Gout- no symptoms. Plan: Continue Allopurinol. #S/P Bioproshetic AOVR- no c/o. Plan: Continue Coumadin.
[2018-04-05 06:08] VITALS: BP 132/66
--- NOTE | 2018-04-05 07:16 | PN-Observation ---
Uri Minor 04/05/18 0715: Observation Note Observation Note _ I have personally examined TRISHA ABRAHAM. him disposition is uncertain at this time. Before a determination can be made, he requires continued observation for the following reasons: Patient has been experiencing vertigo, determination must be made whether this is BPPV versus an acute intracranial process such as stroke Assessment/Plan Medical Assessment: This is an 82-year-old male with history of hypertension, hyperlipidemia, coronary artery disease, diastolic heart failure, A. fib on Coumadin, aortic stenosis status post aortic valve replacement who was brought to the emergency department with several hours of dizziness. Problem list/plan Intractable vertigo -Admit to [facility] -Vitals and I/O per protocol -Appreciate neurology consult and elaboration of imaging findings Chronic conditions -all home medicines continued, except warfarin for supratherapeutic INR DVT prophylaxis: held due to supratherapeutic INR Patient is DNR/DNI Problem List: 1. Vertigo DVT/Prophylaxis: mechanical Discharge Plan Discharge Disposition: home Stable for Discharge? Yes Anticipated Discharge (Day): today If Discharged Today/In 24 Hrs: CMR done Subjective Follow-up For: Vertigo/dizziness Complaints: no complaints Subjective: She was seen and examined at the bedside. Patient states that all of his vertigo has resolved since last night. No other complaints. Patient states he is ready to return home. Review of Systems Constitutional: Reports: no symptoms. Objective Last 24 Hrs of Vital Signs/I&O Vital Signs Date Time Temp Pulse Resp B/P B/P Pulse O2 O2 Flow FiO2 Mean Ox Delivery Rate 04/05 1321 97.4 81 20 132/70 92 Room Air 04/05 1320 81 132/70 04/05 0859 66 120/86 04/05 0800 Room Air 04/05 0608 98.2 73 20 132/66 98 Room Air 04/04 2346 Room Air 04/04 2010 80 20 150/82 98 Intake & Output 04/05 1600 04/05 0800 04/05 0000 Intake Total 480 240 Output Total Balance 480 240 Intake, Oral 480 240 Number 0 0 Bowel Movements Patient 217 lb 214 lb Weight Weight Bed scale Reported by Patient Measurement Method Physical Exam General Appearance: Alert, Oriented X3, Cooperative, No Acute Distress Skin: No Rashes, No Breakdown Skin Temp/Moisture Exam: Warm/Dry HEENT: Atraumatic, PERRLA, EOMI Neck: Supple, No JVD, No thryomegaly Cardiovascular: Regular Rate, Normal S1, Normal S2, No Murmurs, loud aortic snap Lungs: Clear to Auscultation, Normal Air Movement Abdomen: Soft Neurological: Normal Gait, Normal Speech, Strength at 5/5 X4 Ext, Normal Tone, Sensation Intact Extremities: No Clubbing, No Cyanosis, No Edema, Normal Pulses Vascular: Normal Pulses, Pulses Symmetrical MaggieNhi 04/05/18 1251: Attending Addendum Attending Brief Note 82 yo male with h/o CAD, AOVR, afib on warfarin presented with sudden onset of severe vertigo. Had neuro w/u in ED including CT, CTA, MRI- no acute infarct on MRI but some vascular narrowing on CTA. Was seen by Neuro (Dr. Tran) and thinks vertigo from BPPV. He has no nystagmus, PT consulted and stable for discharge to home. Anticipate discharge soon. Consider discontinuation of diuretics and follow up with PCP in 1 week of discharge.
--- NOTE | 2018-04-05 08:44 | Patient Discharge Instructions ---
Discharge Instructions General Discharge Information Special Instructions: - Please follow up with your primary care physician within 1-2 weeks of discharge. Inform your primary care physician of this admission to [facility]. -A consultation request has been made for you at [facility] with Dr. Elizondo. Please call to schedule this appointment within one month. - Continue your current medications per discharge instructions. - Please watch for these problems: Fever, Chills, Nausea, Vomiting, Shortness of Breath, Productive Cough, Chest Pain/Discomfort, Abdominal Pain, Active Bleeding or Bloody urine/stool. Diet Continue normal diet: Yes Activity Full Activity/No Limits: Yes Acute Coronary Syndrome Inclusion Criteria At DC or during hospital stay patient has or had the following: ACS DIAGNOSIS No Discharge Core Measures Meds if any: Prescribed or Continued at Discharge Meds if any: NOT Prescribed or Continued at Discharge Congestive Heart Failure Inclusion Criteria At DC or during hospital stay patient has or had the following: CHF DIAGNOSIS No Discharge Core Measures Meds if any: Prescribed or Continued at Discharge Meds if any: NOT Prescribed or Continued at Discharge Cerebrovascular accident Inclusion Criteria At DC or during hospital stay patient has or had the following: CVA/TIA Diagnosis No Discharge Core Measures Meds if any: Prescribed or Continued at Discharge Meds if any: NOT Prescribed or Continued at Discharge Venous thromboembolism Inclusion Criteria VTE Diagnosis No VTE Type NONE VTE Confirmed by (Test) NONE Discharge Core Measures - Per Current guidelines, there needs to be overlap - treatment for the first 5 days of Warfarin therapy. - If discharged on Warfarin prior to 5 days of - overlap therapy, the patient will need to be - assessed for post discharge needs including - *Post discharge parental anticoagulation - *Warfarin and/or parental anticoagulation education - *Follow up date to check INR post discharge At least 5 days overlap therapy as Inpatient No Meds if any: Prescribed or Continued at Discharge Note: Overlap Therapy is Warfarin and Anticoagulant Meds if any: NOT Prescribed or Continued at Discharge
[2018-04-05 13:20] VITALS: BP 132/70
[2018-04-05 13:21] VITALS: BP 132/70
[2018-04-05] MEDS ORDERED: LASIX40 M1 PO (14:11)
--- NOTE | 2018-04-05 18:48 | Discharge Summary ---
Visit Information Visit Dates Admission Date: 04/04/18 Discharge Date: 04/05/18 Hospital Course Course Attending Physician: Nhi Serrano MD Primary Care Physician: Gregorio MENON,Channing Home Course: Hospital Course 82-year-old male with history of hypertension, hyperlipidemia, coronary artery disease, diastolic heart failure, A. fib on Coumadin, aortic stenosis status post aortic valve replacement who was brought to the emergency department with several hours of dizziness. Patient was given fluids and meclizine in the emergency department, and then sent observation in the hospital on the general medicine floor. Overnight, the patient's symptoms resolved. In the morning, PT evaluation revealed no deficits. Patient was discharged later that day On presenting physical exam Neurological Normal Speech, Strength at 5/5 X4 Ext, Normal Tone, Sensation Intact, dizziness, increased by increasing vertical height Otherwise, physical exam unremarkable On presentation, laboratory results were unremarkable Allergies: Coded Allergies: No Known Allergies (09/21/17) Pertinent Lab Results: SERVICE DATE: 04/04/18 EXAM TYPE: CAT - CT HEAD ANGIOGRAM; CT NECK ANGIOGRAM IMPRESSION: - No acute intracranial findings. No acute infarcts. There is global cerebral volume loss and mild chronic microangiopathy. - The right AICA and PICA are faintly visualized with a possible combined origin that is severely stenotic or near occluded. No definite cerebellar infarcts are seen. - Calcific and lipid rich atherosclerotic plaque results in 50% stenoses of the proximal right and left internal carotid arteries. - Atherosclerotic calcification of the vertebral artery origins bilaterally likely resulting in mild to moderate vertebral artery origin stenosis. 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 - Calcified pleural plaques are again noted. Partially imaged mediastinal and hilar lymphadenopathy. - Advanced cervical spondylosis. SERVICE DATE: 04/04/18 EXAM TYPE: MRI - MRI-HEAD W/O MICHELLE IMPRESSION: 1. There are no acute bleeds or infarcts. No masses are demonstrated. 2. There is diffuse volume loss and there are chronic microvascular ischemic disease and lacunar infarcts. Disposition Summary Disposition Principal Diagnosis: BPPV Additional Diagnosis: None Discharge Disposition: home or self care Discharge Instructions General Discharge Information Code Status: Do Not Resucitate/Intubat Patient's Diet: Regular as tolerated Patient's Activity: As tolerated Follow-Up Instructions/Appts: - Please follow up with your primary care physician within 1-2 weeks of discharge. Inform your primary care physician of this admission to [facility]. -A consultation request has been made for you at [facility] with Dr. Elizondo. Please call to schedule this appointment within one month. - Continue your current medications per discharge instructions. - Please watch for these problems: Fever, Chills, Nausea, Vomiting, Shortness of Breath, Productive Cough, Chest Pain/Discomfort, Abdominal Pain, Active Bleeding or Bloody urine/stool. Medications at Discharge Discharge Medications: Continue taking these medications: Metoprolol Succ XL (Toprol XL) 25 MG TAB 1 Tablet ORAL DAILY Comments: Last Taken: 04/05/18 Time: 8:59 AM Allopurinol (Allopurinol) 100 MG TABLET 1 Tablet ORAL DAILY Comments: Last Taken: 04/05/18 Time: 8:58 AM Atorvastatin Calcium (Atorvastatin Calcium) 40 MG TABLET 1 Tablet ORAL DAILY Comments: Last Taken: 04/05/18 Time: 8:59 AM Finasteride (Finasteride) 5 MG TABLET 1 Tablet ORAL DAILY Comments: NOT GIVEN IN HOSPITAL Warfarin Sodium (Coumadin) 2 MG TABLET 1 Tablet ORAL TuThSa Comments: NOT GIVEN IN HOSPITAL Warfarin Sodium (Coumadin) 4 MG TABLET 1 Tablet ORAL SuMoWeFr Comments: NOT GIVEN IN HOSPITAL Hydrochlorothiazide (Hydrochlorothiazide) 25 MG TABLET 1 Tablet ORAL DAILY Comments: Last Taken: 04/05/18 Time: 8:59 AM Rosuvastatin Calcium (Crestor) 40 MG TABLET 1 Tablet ORAL DAILY Comments: LIPITOR GIVEN Last Taken: 04/05/18 Time: 8:59 AM Aspirin (Aspirin*) 81 MG TAB.CHEW 1 Tablet ORAL DAILY Comments: Last Taken: 04/05/18 Time: 8:59 AM Ascorbate Calcium (Vitamin C) 500 MG TABLET 1 Tablet ORAL DAILY Comments: NOT GIVEN IN HOSPITAL Cyanocobalamin (Vitamin B-12) (Vitamin B-12) 250 MCG TABLET 1 Tablet ORAL DAILY Comments: Last Taken: 04/05/18 Time: 8:59 AM Copies To: Gregorio MENON,Kacy Attending MD Review Statement Documenting Attending: Maggie MENON,Nhi Other Findings: 82 yo male with h/o CAD, AOVR, afib on warfarin presented with sudden onset of severe vertigo. Had neuro w/u in ED including CT, CTA, MRI- no acute infarct on MRI but some vascular narrowing on CTA. Was seen by Neuro (Dr. Tran) and thinks vertigo from BPPV. He has no nystagmus, PT consulted and stable for discharge to home. Anticipate discharge soon. Consider discontinuation of diuretics and follow up with PCP in 1 week of discharge. Neurosurgery referral to Dr Young as outpatient.
== END 2018-04-05 17:36 ==
LOC: ERH 10:54 → ERHI 17:35 → 2NA 17:35 → ENRESERV 19:12 → ENTRNSPT 20:30 → EDTRNSPT 20:38 → EDTRNSPTSTS 20:38 → 2NA 20:45 → CMPTRNSPT 20:57 → 2NA 04-05 08:13
PROVIDERS: Student in an Organized Health Care Education/Training Program
DX: R42 Dizziness and giddiness (principal); I10 Essential (primary) hypertension; E78.5 Hyperlipidemia, unspecified; I25.10 Atherosclerotic heart disease of native coronary artery without angina pectoris; I50.32 Chronic diastolic (congestive) heart failure; I48.91 Unspecified atrial fibrillation; Z79.01 Long term (current) use of anticoagulants; I35.0 Nonrheumatic aortic (valve) stenosis; Z95.2 Presence of prosthetic heart valve; Z79.82 Long term (current) use of aspirin; Z87.891 Personal history of nicotine dependence; J44.9 Chronic obstructive pulmonary disease, unspecified; M10.9 Gout, unspecified
CPT/HCPCS: 6030; 70551; 36592; 82436; 93005; 93010; 96374; 97112-GP; 97116-GP; 97161-GP; G0378; G8978-GP; G8979-GP; G8980-GP; J3490